=== PATIENT | female | born 1965 | race American Indian/Alaskan Native ===

== ENCOUNTER 2016-10-28 10:38 | Outpatient (CLI) | payer OTHER ==
--- NOTE | 2016-10-28 13:17 | Mammography Report ---
Screening mammogram: The patient has a heterogeneously dense fibroglandular pattern which is slightly denser in the left breast than the right. In the left CC projection there is a stellate density. There may be questionable correlation and superior breast. The findings otherwise appear generally unremarkable bilaterally. CAD used. Impression: Left breast asymmetry. Recommendation: This patient's prior exams are being requested for comparison. If there is no followup report in the next 3 weeks please pursue additional evaluation to include spot compression imaging and ultrasound as needed. BI-RADS CATEGORY: 0 = Needs additional imaging evaluation ACR BI-RADS MAMMOGRAPHIC CODES: 0 = Needs additional imaging evaluation; 1 = Negative; 2 = Benign; 3 = Probably benign; 4 = Suspicious; 5 = Malignant; 6 = Known biopsy-proven malignancy COMMENT: 1. Dense breast tissue, i.e., adenosis, fibrocystic changes, etc., may obscure an underlying neoplasm. 2. Approximately 10% of cancers are not detected with mammography. 3. A negative mammography report should not delay biopsy if a clinically suspicious mass is present.
== END 2016-10-28 10:39 | disposition home or self-care (01) ==
LOC: MAMMO 10:38
PROVIDERS: ATTEND Internal Medicine
DX: Z12.31 Encounter for screening mammogram for malignant neoplasm of breast (principal)
CPT/HCPCS: 77067; G0202

== ENCOUNTER 2017-01-08 10:49 | Outpatient (CLI) | payer OTHER ==
--- NOTE | 2017-01-08 11:59 | Mammography Report ---
Spot compression magnification and sonographic examination of density approximately 12:00 position left breast: Findings: There is partially effacement noted of the density at 2:00 position. There is however no distinct mass identified. No microcalcification is seen. Sonographic examination reveals no cystic or solid mass. Impression: Probably benign density. Recommend 6 month followup with left mammogram and if necessary sonogram. BI-RADS CATEGORY: 3 = Probably benign ACR BI-RADS MAMMOGRAPHIC CODES: 0 = Needs additional imaging evaluation; 1 = Negative; 2 = Benign; 3 = Probably benign; 4 = Suspicious; 5 = Malignant; 6 = Known biopsy-proven malignancy COMMENT: 1. Dense breast tissue, i.e., adenosis, fibrocystic changes, etc., may obscure an underlying neoplasm. 2. Approximately 10% of cancers are not detected with mammography. 3. A negative mammography report should not delay biopsy if a clinically suspicious mass is present. BI-RADS CATEGORY: 0 = Needs additional imaging evaluation ACR BI-RADS MAMMOGRAPHIC CODES: 0 = Needs additional imaging evaluation; 1 = Negative; 2 = Benign; 3 = Probably benign; 4 = Suspicious; 5 = Malignant; 6 = Known biopsy-proven malignancy COMMENT: 1. Dense breast tissue, i.e., adenosis, fibrocystic changes, etc., may obscure an underlying neoplasm. 2. Approximately 10% of cancers are not detected with mammography. 3. A negative mammography report should not delay biopsy if a clinically suspicious mass is present.
== END 2017-01-08 10:50 | disposition home or self-care (01) ==
LOC: MAMMO 10:49
PROVIDERS: ATTEND Internal Medicine
DX: R92.8 Other abnormal and inconclusive findings on diagnostic imaging of breast (principal); I10 Essential (primary) hypertension
CPT/HCPCS: 76642; G0206

== ENCOUNTER 2017-02-10 22:32 | Emergency (ER) | payer OTHER ==
--- NOTE | 2017-02-11 01:03 | XRay Report ---
FINAL REPORT EXAM: XR TIBIA FIBULA 2V LT HISTORY: LEFT LEG PAIN TECHNIQUE: Tibia-fibula left two views 4 images PRIORS: None. FINDINGS: Bone mineralization appears within normal limits. No acute fracture or subluxation is identified. No gross abnormality is seen in the soft tissues. IMPRESSION: 1. No acute osseous abnormality is identified.
--- NOTE | 2017-02-11 01:03 | XRay Report ---
FINAL REPORT EXAM: XR WRIST 2V LT HISTORY: LEFT WRIST PAIN TECHNIQUE: Left wrist two views 2 images PRIORS: None. FINDINGS: Bone mineralization appears within normal limits. No acute fracture or subluxation is identified. No gross abnormality is seen in the soft tissues. IMPRESSION: 1. No acute osseous abnormality is identified.If symptoms persist, consider repeat study in 10-14 days to assess for a currently radiographically occult fracture.
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
--- NOTE | 2017-02-11 01:10 | XRay Report ---
FINAL REPORT EXAM: XR SPINE CERVICAL 2-3V HISTORY: BACK PAIN COMPARISON: None available. FINDINGS: Three views of the cervical spine obtained. Cervical vertebral body heights are preserved. Mild loss of disc height endplate osteophyte at several levels. Odontoid process grossly intact. Prevertebral soft tissues within normal limits. IMPRESSION: Mild degenerative changes.
[2017-02-11] MEDS ORDERED: MOTRIN PO ONE (06:54)
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
[2017-02-11 07:29] VITALS: BP 143/67
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
== END 2017-02-11 08:02 | disposition home or self-care (01) ==
LOC: ED 22:32
DX: M79.1 Myalgia (principal); I10 Essential (primary) hypertension; Z90.710 Acquired absence of both cervix and uterus; Z88.8 Allergy status to other drugs, medicaments and biological substances; V89.2XXA Person injured in unspecified motor-vehicle accident, traffic, initial encounter; Y93.89 Activity, other specified; Y99.8 Other external cause status; Y92.89 Other specified places as the place of occurrence of the external cause
CPT/HCPCS: 72040; 72100; 99283

== ENCOUNTER 2017-11-01 09:10 | Outpatient (CLI) | payer OTHER ==
--- NOTE | 2017-11-02 09:04 | Mammography Report ---
BILATERAL DIGITAL DIAGNOSTIC MAMMOGRAM with CAD: 11/01/17 09:10:00 CLINICAL: Followup left asymmetry. Screening of the right breast. COMPARISON:01/08/17 and 10/28/16 FINDINGS: The breasts are heterogeneously dense, which may obscure small masses.No mass, architectural distortion or suspicious calcifications. No suspicious asymmetry. IMPRESSION: Negative mammogram. BI-RADS CATEGORY: 1 - - Negative RECOMMENDATION: Routine mammographic screening in one year. ACR BI-RADS MAMMOGRAPHIC CODES: 0 = Needs additional imaging evaluation; 1 = Negative; 2 = Benign; 3 = Probably benign; 4 = Suspicious; 5 = Malignant; 6 = Known biopsy-proven malignancy COMMENT: 1. Dense breast tissue, i.e., adenosis, fibrocystic changes, etc., may obscure an underlying neoplasm. 2. Approximately 10% of cancers are not detected with mammography. 3. A negative mammography report should not delay biopsy if a clinically suspicious mass is present. COMMENT: Patient follow-up letters are generated by our [employer] application.
== END 2017-11-01 09:11 | disposition home or self-care (01) ==
LOC: MAMMO 09:10
PROVIDERS: ATTEND Internal Medicine
DX: R92.8 Other abnormal and inconclusive findings on diagnostic imaging of breast (principal)
CPT/HCPCS: 77066